=== PATIENT | female | born 1950 | race Caucasian/White ===

== ENCOUNTER 2019-01-04 10:44 | Emergency (ER) | payer MEDICARE, BC ==
[~2019-01-04] VITALS: Ht 154.9 cm; Wt 105.0 kg
[2019-01-04 11:22] VITALS: BP 142/60
[2019-01-04] MEDS ORDERED: naproxen 500mg tablet PO ONE (11:55)
== END 2019-01-04 14:22 | disposition home or self-care (01) ==
LOC: ER 10:46
DX: M13.862 Other specified arthritis, left knee (principal); I10 Essential (primary) hypertension; K21.9 Gastro-esophageal reflux disease without esophagitis; Z90.49 Acquired absence of other specified parts of digestive tract; Z88.6 Allergy status to analgesic agent; Z88.8 Allergy status to other drugs, medicaments and biological substances
CPT/HCPCS: 73564; 93971; 99284